=== PATIENT | male | born 1990 | race Caucasian/White ===

== ENCOUNTER 2020-07-29 10:06 | Emergency (ER) | payer MEDICAID ==
[~2020-07-29] VITALS: Ht 165.1 cm; Wt 63.5 kg
[2020-07-29 10:09] VITALS: BP_SYST 126
[2020-07-29] MEDS ORDERED: ALBU8.5H8 INH (10:14)
[2020-07-29 10:19] VITALS: BP_SYST 126
== END 2020-07-29 10:19 ==
LOC: SED 10:06
DX: Z02.89 Encounter for other administrative examinations (principal); J45.909 Unspecified asthma, uncomplicated; Z79.899 Other long term (current) drug therapy
CPT/HCPCS: 99283

== ENCOUNTER 2020-09-09 07:49 | Emergency (ER) | payer MEDICAID, SELFPAY ==
[~2020-09-09] VITALS: Ht 167.6 cm; Wt 63.5 kg
[~2020-09-09 07:49] MED LIST: ALBU8.5H8 INH
[2020-09-09 08:17] VITALS: BP_SYST 134
[2020-09-09] MEDS ORDERED: IBUPROFEN 800 MG TABLET PO ONE (09:00)
[2020-09-09 09:27] LABS: BASOPHILS % (AUTO) 0.1 % (0.0-2.0); HEMOGLOBIN 13.5 g/dL (14.0-18.0); LYMPHOCYTES # (AUTO) 2.6 K/uL (1.0-5.5); LYMPHOCYTES % (AUTO) 18.8 % (20.5-51.5); MEAN CORPUSCULAR HEMOGLOBIN 27 pg (27-31); MEAN CORPUSCULAR HGB CONC 34 % (32-36); MEAN CORPUSCULAR VOLUME 79 fL (79.0-98.0); MONOCYTES # (AUTO) 1.1 K/uL (0.0-1.0); MONOCYTES % (AUTO) 7.5 % (1.7-9.3); NEUTROPHILS # (AUTO) 10.3 K/uL (1.8-7.7); NEUTROPHILS % (AUTO) 73.6 % (40.0-70.0); PLATELET COUNT (AUTO) 244 K/uL (130-430); RED BLOOD CELL COUNT(AUTO) 5.06 MIL/uL (4.2-6.2); RED CELL DISTRIBUTION WIDTH 13.7 % (9.0-15.0)
[2020-09-09 09:43] LABS: CALCIUM 8.9 mg/dL (8.4-11.0); CREATININE 0.84 mg/dL (0.55-1.30); POTASSIUM 3.4 mmol/L (3.5-5.1)
[2020-09-09 09:46] LABS: PROTHROMBIN TIME 10.7 SECS (9.5-12.5)
[2020-09-09 09:49] LABS: ALBUMIN 3.3 g/dL (3.4-4.8)
[2020-09-09 10:12] LABS: ERYTHROCYTE SEDIMENTATION RATE 12 MM/HR (0-15)
[2020-09-09] MEDS ORDERED: MORPHINE 4 MG INJ. 4 MG/ML VIAL IVP ONE (10:45)
[2020-09-09] MEDS ORDERED: VANCOMYCIN HCL 1,000 MG in NS 250 ML IV ONE (10:45)
[2020-09-09] MEDS ORDERED: ACETAMINOPHEN 500 MG TABLET PO ONE (10:45)
[2020-09-09] MEDS ORDERED: VANCOMYCIN HCL 1000 MG/VIAL IV ONE (11:02)
[2020-09-09] MEDS ORDERED: SULF1TAB48 PO (11:36)
== END 2020-09-09 13:37 | disposition home or self-care (01) ==
LOC: SED 07:49
DX: L03.114 Cellulitis of left upper limb (principal); M79.18 Myalgia, other site; R50.9 Fever, unspecified; Z79.899 Other long term (current) drug therapy; Z20.822 Contact with and (suspected) exposure to COVID-19
CPT/HCPCS: 36415; 71045; 80053; 83605; 84484; 85025; 85610; 85651; 85730; 87040; 87426; 93005; 96365; 96366; 96375; 99285; J2270; J3370; 87186-TC

== ENCOUNTER 2020-09-10 13:26 | Inpatient (IN) | payer MEDICAID, SELFPAY ==
[~2020-09-10] VITALS: Ht 165.1 cm; Wt 63.5 kg
[~2020-09-10 13:26] MED LIST changes: +SULF1TAB48 PO
[2020-09-10] MEDS ORDERED: VANCOMYCIN HCL 1,000 MG in NS 250 ML IV ONE (13:30)
[2020-09-10] MEDS ORDERED: GENTAMICIN 100 mg/50 mL NS 50 ML IV ONE (13:30)
[2020-09-10] MEDS ORDERED: NACL 0.9% 1,000 ML IV ONE ×2 (13:30→14:00)
--- NOTE | 2020-09-10 13:30 | NUR ---
Placed in room 8 . Placed on quality assurance monitor, blood pressure machine and pulse oximeter. To gown for exam. Side rails up. Report given to BEATRICE Calabrese.
[2020-09-10 13:32] VITALS: BP_SYST 145
--- NOTE | 2020-09-10 13:32 | NUR ---
PT CAME TO ER AFTER BEING CALLED BY DR. OLSEN FOR INFECTION PRESENT IN THE BLOOD STREAM. PT HAS A HX OF IV DRUG USE, BILATERAL BICEPT SWELLING AND REDNESS, WARM TO TOUCH, TENDER AND PAINFUL. PT IS AMBULATORY, AAOX4, V/S STABLE UPON ARRIVAL Addendum: 09/10/20 at 1359 by [email or web address] PT CAME TO ER AFTER BEING CALLED BY DR. OLSEN FOR POSITIVE BLOOD CULTURES FROM PRESVIOUS VISIT ON 09/09/20. PT HAS A HX OF IV DRUG USE, BILATERAL BICEPT SWELLING AND REDNESS, WARM TO TOUCH, TENDER AND PAINFUL. PT IS AMBULATORY, AAOX4, V/S STABLE UPON ARRIVAL
--- NOTE | 2020-09-10 13:35 | NUR ---
ER DR. OLSEN AT THE BEDSIDE EXAMINING PT
--- NOTE | 2020-09-10 13:40 | NUR ---
PORTABLE X-RAY AT THE BEDSIDE
[2020-09-10] MEDS ORDERED: ACETAMINOPHEN 500 MG TABLET PO ONE (13:45)
--- NOTE | 2020-09-10 14:01 | NUR ---
Medication reconciliation completed with information provided by PT. Any prior medication reconciliation on file was reviewed and corrected.
[2020-09-10] MEDS ORDERED: VANCOMYCIN HCL 1000 MG/VIAL IV ONE (14:10)
--- NOTE | 2020-09-10 14:10 | NUR ---
ADMISSION ORDERS RECEIVED FROM DR. LAMBERT
[2020-09-10] MEDS ORDERED: LORazepam 2 MG/ML VIAL IVP ONE (14:15)
[2020-09-10] MEDS ORDERED: cloNIDine HCL 0.1 MG TABLET PO ONE (14:15)
--- NOTE | 2020-09-10 14:24 | NUR ---
LAB AT THE BEDSIDE FOR BLOOD DRAW
--- NOTE | 2020-09-10 14:40 | NUR ---
PT SLEEPING IN BED, NO DISTRESS NOTED, V/S STABLE
[2020-09-10] MEDS ORDERED: CIPROFLOXACIN LACT 400 MG/D5W 200 ML IV ONE (14:45)
[2020-09-10 14:56] LABS: BASOPHILS % (AUTO) 0.4 % (0.0-2.0); HEMATOCRIT 36.6 % (36-54); HEMOGLOBIN 12.3 g/dL (14.0-18.0); LYMPHOCYTES # (AUTO) 2.6 K/uL (1.0-5.5); LYMPHOCYTES % (AUTO) 21.2 % (20.5-51.5); MEAN CORPUSCULAR HEMOGLOBIN 27 pg (27-31); MEAN CORPUSCULAR HGB CONC 34 % (32-36); MEAN CORPUSCULAR VOLUME 80 fL (79.0-98.0); MONOCYTES # (AUTO) 1.2 K/uL (0.0-1.0); MONOCYTES % (AUTO) 9.8 % (1.7-9.3); NEUTROPHILS # (AUTO) 8.5 K/uL (1.8-7.7); NEUTROPHILS % (AUTO) 68.6 % (40.0-70.0); PLATELET COUNT (AUTO) 206 K/uL (130-430); RED BLOOD CELL COUNT(AUTO) 4.56 MIL/uL (4.2-6.2); RED CELL DISTRIBUTION WIDTH 14.1 % (9.0-15.0); WHITE BLOOD COUNT (AUTO) 12.4 K/uL (4.8-10.8)
[2020-09-10 15:02] LABS: CALCIUM 8.6 mg/dL (8.4-11.0); CREATININE 0.93 mg/dL (0.55-1.30)
[2020-09-10 15:08] LABS: TOTAL BILIRUBIN 0.2 mg/dL (0.0-1.0)
--- NOTE | 2020-09-10 15:18 | NUR ---
Patient will be admitted to care of DR. LAMBERT. Admitted to TELE unit. Will go to room 100B. Belongings list completed. Complete and up to date summary report printed. SBAR report to be given at bedside with opportunity for questions.
[2020-09-10 15:24] LABS: C-REACTIVE PROTEIN QUANT 12.5 mg/dL (0-0.5)
--- NOTE | 2020-09-10 15:36 | NUR ---
CONSULTATION PAGED REASON FOR CONSULTATION:SEPSIS WAS CONSULT CALLED?Y PERSON WHO WAS NOTIFIED:LIZA CONSULTING PHYSICIAN:LISBET LIN CELL PREPARER SPECIALTY:INFECTIOUS DISEASE CELL PREPARER PHONE NUMBER:[phone] REQUESTING PHYSICIAN: ROSS PATTERSON
--- NOTE | 2020-09-10 15:37 | NUR ---
ADMISSION NOTE Received patient from ER via gurney. Patient admitted with diagnosis of sepsis. Patient is awake, alert, oriented X . Patient oriented to hospital room, call light, toileting, pain management and safety-teach back done. Patient informed that Nancy and Uli will be his nurse and that their room number is 100B. Personal belongings checked and Belongings List documented. Call light within reach.
[2020-09-10] MEDS ORDERED: NALOXONE HCL 0.4 MG/ML AMP (NARCAN) IVP PRN ×2 (15:45)
[2020-09-10] MEDS ORDERED: ONDANSETRON HCL 4 MG/2 ML VIAL IVP PRN (15:45)
[2020-09-10] MEDS ORDERED: ACETAMINOPHEN 325 MG TABLET PO PRN (15:45)
--- NOTE | 2020-09-10 15:47 | NUR ---
CONSULTATION PAGED REASON FOR CONSULTATION:ENDOCARDITIS WAS CONSULT CALLED?Y PERSON WHO WAS NOTIFIED:ALFREDO CONSULTING PHYSICIAN:CALE SON WALLPAPERER SPECIALTY:CARDIO WALLPAPERER PHONE NUMBER:[phone] REQUESTING PHYSICIAN:ROSS PATTERSON
[2020-09-10 15:55] LABS: ERYTHROCYTE SEDIMENTATION RATE 20 MM/HR (0-15)
[2020-09-10 16:22] VITALS: BP_SYST 137
--- NOTE | 2020-09-10 16:49 | NUR ---
CONSULTATION PAGED REASON FOR CONSULTATION:IVDA WAS CONSULT CALLED?Y PERSON WHO WAS NOTIFIED:LIZA CONSULTING PHYSICIAN:CHANA XIAO ( PROTOHISTORIAN) REGISTERED NURSE NURSERY SPECIALTY:PSYCHE REGISTERED NURSE NURSERY PHONE NUMBER:[phone] REQUESTING PHYSICIAN: ROSS PATTERSON
[2020-09-10] MEDS: MORPHINE 4 MG INJ. 4 MG/ML VIAL IVP PRN ×2 (16:52→21:04)
[2020-09-10 17:17] VITALS: BP_SYST 135
[2020-09-10] MEDS: PIPERACILLIN/TAZO 3.375/DEX-IS 50 ML IV SCH (17:44)
[2020-09-10] MEDS: HYDROcodone/ACETAMIN 5-325 MG TAB (NORCO/ VICODIN) PO PRN (18:41)
--- NOTE | 2020-09-10 18:53 | NUR ---
Closing Note Patient lying down in bed with girlfriend, reports moderate pain, pain medication given. IV 20 G in right upper arm patent and infusing NS. Bed in lowest position, bed alarm on, and call light with reach. Used urinal at bedside, dark yellow urine noted. Vitals are stable and no acute respiratory distress noted.
--- NOTE | 2020-09-10 19:15 | NUR ---
OPENING NOTES: Received patient report from morning shift RN. Patient on bed, AAOx4, breathing evenly and nonlabored on room air, no s/s of distress, HOB elevated. Patient has an IV on the DIXIE 20G, patent, benign, and flushing. No s/s of infection or infiltration. Educated patient on plan of care, fall/safety precaution, call light system. Patient verbalized understanding with returned demonstration. Will continue to monitor.
[2020-09-10 20:00] VITALS: BP_SYST 118
[2020-09-10] MEDS ORDERED: CIPROFLOXACIN LACT 400 MG/D5W 200 ML IV SCH (21:00)
[2020-09-10] MEDS: VANCOMYCIN HCL 750 MG in NS 250 ML IV SCH (22:27)
[2020-09-11] VITALS: BP_SYST 127
[2020-09-11] MEDS: PIPERACILLIN/TAZO 3.375/DEX-IS 50 ML IV SCH ×2 (00:09→05:17)
[2020-09-11] MEDS: MORPHINE 4 MG INJ. 4 MG/ML VIAL IVP PRN ×4 (05:17→20:49)
[2020-09-11] MEDS: VANCOMYCIN HCL 750 MG in NS 250 ML IV SCH ×3 (06:03→22:09)
--- NOTE | 2020-09-11 06:25 | NUR ---
CLOSING NOTES: Patient in bed, eyes closed, breathing evenly and nonlabored on room air, no s/s of distress, HOB elevated. Patient has an IV on the DIXIE 20G, patent, benign, and flushing. Call light within reach. Fall/safety precautions. Will continue to monitor and endorse care to morning shift rn.
--- NOTE | 2020-09-11 06:53 | NUR ---
Nutrition Update Nile Scale 18 noted. Pt admitted for Sepsis Diet: Regular BMI: 23.3 kg/m2 RD to follow per nutrition care standards.
[2020-09-11 08:08] VITALS: BP_SYST 127
--- NOTE | 2020-09-11 08:10 | NUR ---
OPENING NOTES: RECEIVED FROM ENAMEL SPRAYER RN. PATIENT EATING BREAKFAST. ALERT,A AWAKE AND ORIENTED X 4. NO SIGNS OF ACUTE DISTRESS NOTED. IV PATENT AND INFUSING WELL. FALL AND SAFETY PRECAUTION REINFORCED. CALL LIGHT WITHIN REACH.
[2020-09-11 11:00] LABS: BARBITURATE, URINE NEGATIVE (NEG <=200); BENZODIAZEPINE, URINE NEGATIVE (NEG <=150); CANNABINOID, URINE NEGATIVE (NEG <=50); COCAINE, URINE NEGATIVE (NEG <=150); METHAMPHETAMINES SCREEN,URINE POSITIVE (NEG <=500); OPIATE, URINE POSITIVE (NEG <=100); PHENCYCLIDINE SCREEN,URINE NEGATIVE (NEG <=25); UR TRICYCLIC ANTIDEPRESSANTS NEGATIVE (NEG <=300); URINE AMPHETAMINE POSITIVE (NEG <=500); URINE METHADONE NEGATIVE (NEG <=200); URINE OXYCODONE SCREEN NEGATIVE (NEG <=100); URINE PROPOXYPHENE SCREEN NEGATIVE (NEG <=300)
[2020-09-11 11:28] VITALS: BP_SYST 128
[2020-09-11] MEDS: AMPICILLIN SODIUM/SULBACTAM NA 3 GM in NS 100 ML IV SCH ×2 (11:56→17:24)
[2020-09-11] MEDS: HYDROcodone/ACETAMIN 5-325 MG TAB (NORCO/ VICODIN) PO PRN (15:00)
[2020-09-11 15:25] VITALS: BP_SYST 119
[2020-09-11 16:10] LABS: BASOPHILS % (AUTO) 0.1 % (0.0-2.0); EOSINOPHILS # (AUTO) 0.1 K/uL (0.0-0.4); EOSINOPHILS % (AUTO) 0.6 % (0.0-4.0); HEMATOCRIT 36.8 % (36-54); HEMOGLOBIN 12.3 g/dL (14.0-18.0); LYMPHOCYTES # (AUTO) 3.3 K/uL (1.0-5.5); MEAN CORPUSCULAR HEMOGLOBIN 27 pg (27-31); MEAN CORPUSCULAR HGB CONC 33 % (32-36); MEAN CORPUSCULAR VOLUME 80 fL (79.0-98.0); MONOCYTES # (AUTO) 1.3 K/uL (0.0-1.0); MONOCYTES % (AUTO) 10.1 % (1.7-9.3); NEUTROPHILS # (AUTO) 8.1 K/uL (1.8-7.7); NEUTROPHILS % (AUTO) 63.2 % (40.0-70.0); PLATELET COUNT (AUTO) 229 K/uL (130-430); RED BLOOD CELL COUNT(AUTO) 4.58 MIL/uL (4.2-6.2); RED CELL DISTRIBUTION WIDTH 13.8 % (9.0-15.0); WHITE BLOOD COUNT (AUTO) 12.7 K/uL (4.8-10.8)
--- NOTE | 2020-09-11 16:30 | NUR ---
RN NOTES: PATIENT C/O PAIN RATED 9/10 GENERALIZED. NO SIGNS OF RESPIRATORY DISTRESS NOTED. MORPHINE GIVEN ORDERED.
[2020-09-11 16:47] LABS: ALBUMIN 2.7 g/dL (3.4-4.8); CALCIUM 8.8 mg/dL (8.4-11.0); CREATININE 0.76 mg/dL (0.55-1.30); POTASSIUM 3.7 mmol/L (3.5-5.1); TOTAL BILIRUBIN 0.3 mg/dL (0.0-1.0)
--- NOTE | 2020-09-11 19:00 | NUR ---
CLOSING NOTES: PATIENT EATING DINNER. NO SIGNS OF ACUTE DISTRESS NOTED. IV INFUSING WELL. CALL LIGHT WITHIN REACH. FALL AND SAFETY PRECAUTION RENDERED.
--- NOTE | 2020-09-11 19:15 | NUR ---
OPENING NOTES: Received patient report from am nurse. Patient in bed, AAOx4, breathing evenly and nonlabored on room air, HOB elevated, no s/s of distress. Patient has an IV on the DIXIE, patent, benign, and flushing. No s/s of infection or infiltration. Fall/safety precaution. Call light within reach. Will continue to monitor.
[2020-09-11 20:00] VITALS: BP_SYST 129
[2020-09-11] MEDS: HYDROcodone/ACETAMIN 10-325 MG TAB PO PRN (22:09)
[2020-09-12] VITALS: BP_SYST 114
[2020-09-12] MEDS: AMPICILLIN SODIUM/SULBACTAM NA 3 GM in NS 100 ML IV SCH ×5 (00:47→23:19)
[2020-09-12] MEDS: MORPHINE 4 MG INJ. 4 MG/ML VIAL IVP PRN ×4 (00:47→18:04)
--- NOTE | 2020-09-12 00:47 | NUR ---
ROUNDS/PAIN: Administered pain medication. Will reassess and monitor patient.
--- NOTE | 2020-09-12 04:58 | NUR ---
ROUNDS/PAIN: Administered pain medications, will reassess and monitor.
[2020-09-12] MEDS: VANCOMYCIN HCL 750 MG in NS 250 ML IV SCH (06:01)
[2020-09-12] MEDS: HYDROcodone/ACETAMIN 5-325 MG TAB (NORCO/ VICODIN) PO PRN ×2 (06:37→14:43)
--- NOTE | 2020-09-12 06:51 | NUR ---
CLOSING NOTES: Patient in bed, AAOx4, breathing evenly and nonlabored on room air, HOB elevated, no s/s of distress. Patient has an IV on the DIXIE, patent, benign, and flushing. No s/s of infection or infiltration. Fall/safety precaution. Call light within reach. Will continue to monitor and endorse care to morning shift rn.
[2020-09-12 06:55] LABS: BASOPHILS % (AUTO) 0.3 % (0.0-2.0); EOSINOPHILS # (AUTO) 0.1 K/uL (0.0-0.4); EOSINOPHILS % (AUTO) 1.1 % (0.0-4.0); HEMATOCRIT 37.4 % (36-54); HEMOGLOBIN 12.7 g/dL (14.0-18.0); LYMPHOCYTES # (AUTO) 3.1 K/uL (1.0-5.5); LYMPHOCYTES % (AUTO) 30.7 % (20.5-51.5); MEAN CORPUSCULAR HEMOGLOBIN 27 pg (27-31); MEAN CORPUSCULAR HGB CONC 34 % (32-36); MEAN CORPUSCULAR VOLUME 81 fL (79.0-98.0); MONOCYTES # (AUTO) 1.2 K/uL (0.0-1.0); MONOCYTES % (AUTO) 12.1 % (1.7-9.3); NEUTROPHILS # (AUTO) 5.7 K/uL (1.8-7.7); NEUTROPHILS % (AUTO) 55.8 % (40.0-70.0); PLATELET COUNT (AUTO) 239 K/uL (130-430); RED BLOOD CELL COUNT(AUTO) 4.65 MIL/uL (4.2-6.2); RED CELL DISTRIBUTION WIDTH 14.5 % (9.0-15.0); WHITE BLOOD COUNT (AUTO) 10.1 K/uL (4.8-10.8)
[2020-09-12 07:13] LABS: ALBUMIN 2.5 g/dL (3.4-4.8); CALCIUM 8.7 mg/dL (8.4-11.0); CREATININE 0.72 mg/dL (0.55-1.30); POTASSIUM 3.8 mmol/L (3.5-5.1); TOTAL BILIRUBIN 0.4 mg/dL (0.0-1.0)
--- NOTE | 2020-09-12 08:00 | NUR ---
Opening Note Patient resting with girlfriend at bedside, reported pain, pain medication given per MD orders. Bed in lowest position, and call light within reach. Educated on side effects of pain medication and to call if he needs assistance.
[2020-09-12 11:23] VITALS: BP_SYST 130
--- NOTE | 2020-09-12 14:09 | NUR ---
Dietitian Recommendations * Recommend: continue regular diet, add double portions of proteins and vegetables. * Consider: Ensure Enlive BID if poor PO intake persists. (ONS provides 700 kcals and 40g protein daily) Please see Nutritional Assessment for details.
[2020-09-12] MEDS: VANCOMYCIN HCL 1,000 MG in NS 250 ML IV SCH ×2 (14:43→23:00)
--- NOTE | 2020-09-12 15:34 | NUR ---
Jayne Bowers patient has positive blood cultures, MRSA in blood culture. Addendum: 09/12/20 at 1617 by Uli Patel RN Third page for Dr. Bowers
[2020-09-12 15:35] VITALS: BP_SYST 135
--- NOTE | 2020-09-12 15:41 | NUR ---
Paged Dr. Bowers with lab results. Positive blood culture for MRSA. Will call back in 15 minutes
[2020-09-12] MEDS: HYDROcodone/ACETAMIN 10-325 MG TAB PO PRN (18:52)
--- NOTE | 2020-09-12 19:00 | NUR ---
Patient in bed with girlfriend, AAOx4, breathing evenly and nonlabored on room air, HOB elevated, no s/s of distress. Patient has an IV on the DIXIE, disconnected from antibiotics, will endorse to start a new antibiotics as it is leaking. No s/s of infection or infiltration. Fall/safety precaution. Call light within reach. Will continue to monitor and endorse care to morning shift rn.
--- NOTE | 2020-09-12 19:50 | NUR ---
Opening notes Pt AAOx4, VSS, afebrile. No s/s distress noted. IV DIXIE not patent. Call light within reach. Pt's girlfriend at bedside. Bed low, locked, siderails up x2. To monitor.
[2020-09-12 20:00] VITALS: BP_SYST 128
--- NOTE | 2020-09-12 22:00 | NUR ---
IV restart attempted IV restart attempted multiple times but unsuccessful (blows/multiple tattoos). Garcia merlos MD.
--- NOTE | 2020-09-12 22:32 | NUR ---
Jayne Machado for midline/PICC line order. Awaiting callback.
--- NOTE | 2020-09-12 22:33 | NUR ---
Paged Dr. Machado s/w Vianey
--- NOTE | 2020-09-13 00:04 | NUR ---
Received MD callback Received order for PICC line insertion per Dr. Machado.
[2020-09-13 00:18] VITALS: BP_SYST 111
[2020-09-13] MEDS: HYDROcodone/ACETAMIN 10-325 MG TAB PO PRN ×2 (00:26→06:47)
[2020-09-13] MEDS: AMPICILLIN SODIUM/SULBACTAM NA 3 GM in NS 100 ML IV SCH ×4 (05:36→23:48)
[2020-09-13] MEDS: VANCOMYCIN HCL 1,000 MG in NS 250 ML IV SCH ×3 (05:36→22:18)
--- NOTE | 2020-09-13 06:42 | NUR ---
Closing notes/Pain Pt alert, awake, no s/s distress noted, c/o 9/10 generalized pain. Medicated w/ [place] 10 1tab PO as needed. Pt awaiting PICC line placement, consent in the chart. Call light within reach. Bed low, locked, siderails up x2. To endorse to AM nurse.
[2020-09-13 07:23] LABS: INR 0.9 (0.80-1.20); PROTHROMBIN TIME 9.5 SECS (9.5-12.5)
--- NOTE | 2020-09-13 08:00 | NUR ---
Opening Note Pt AAOx4, VSS, afebrile. No s/s distress noted. IV DIXIE not patent. Call light within reach. Pt's girlfriend at bedside. Bed low, locked, siderails up x2. Will continue to monitor.
[2020-09-13] MEDS: MORPHINE 4 MG INJ. 4 MG/ML VIAL IVP PRN ×4 (09:34→22:20)
[2020-09-13 09:39] VITALS: BP_SYST 127
--- NOTE | 2020-09-13 09:45 | NUR ---
D/C Pt taken off Tele monitor Addendum: 09/13/20 at 1025 by Nancy Gurrola RN D/C off monitor
--- NOTE | 2020-09-13 12:03 | NUR ---
PICC line placement PICC line nurse at bedside (Bill) at bedside doing PICC line placement.
[2020-09-13 12:06] VITALS: BP_SYST 119
[2020-09-13] MEDS: HYDROcodone/ACETAMIN 5-325 MG TAB (NORCO/ VICODIN) PO PRN (12:51)
--- NOTE | 2020-09-13 15:02 | NUR ---
SS notes BRAND DEVELOPMENT MANAGER wanted to share some drug rehab and mental health resources with pt. BRAND DEVELOPMENT MANAGER saw a notification on pts. door to put PPE on. BRAND DEVELOPMENT MANAGER met with Carlin Camarena and Carlin Cruz to share the resources with pt. the next time they check on pt. Both Rn's stated they will be sensitive to pts. visitors as he has had both his mom and his girlfriend visiting and they do not know about is drug usage. BRAND DEVELOPMENT MANAGER thanked Carlin Camarena, gave her the resources and a business card. BRAND DEVELOPMENT MANAGER will remain available as needed.
--- NOTE | 2020-09-13 16:00 | NUR ---
Rounding Note Paged Dr. Bowers about patient reporting rash on patients right thigh and itching.
[2020-09-13 16:04] VITALS: BP_SYST 129
[2020-09-13] MEDS ORDERED: DIPHENHYDRAMINE INJ 50 MG/ML VIAL IVP PRN (17:30)
--- NOTE | 2020-09-13 18:10 | NUR ---
Dr Bowers Rounding Note Dr. Bowers at bedside, discussed plan of care with patient. Rash that pt reported is no longer bothering him. New orders received. Continued antibiotics.
--- NOTE | 2020-09-13 18:27 | NUR ---
Closing Note Patient in bed, AAOx4, breathing evenly and nonlabored on room air, HOB elevated, no s/s of distress. Patient PICC line flushed and slow blood return attained, patent, benign, and flushing. No s/s of infection or infiltration. Fall/safety precaution. Call light within reach. Will continue to monitor and endorse care to slot shift manager rn.
[2020-09-13 20:00] VITALS: BP_SYST 124
--- NOTE | 2020-09-13 20:15 | NUR ---
OPENING NOTE PT LAYING IN BED WITH GIRLFRIEND/ AT BEDSIDE. DIXIE PICC CLEAN DRY AND INTACT. SAFETY PRECAUTIONS IN PLACE. WILL CONTINUE TO MONITOR,.
--- NOTE | 2020-09-13 21:00 | NUR ---
EDUCATED PT ON VISITOR POLICY EXPLAINED THAT SIGNIFICANT OTHER CANNOT STAY AT BEDSIDE WITH PT PAST 2100. PT STATES HE HAD AN AGREEMENT WITH PREVIOUS SUPERVISORS TO ALLOW HIS GF/ TO STAY OVERNIGHT WHILE PT HOSPITALIZED. SECURITY ASSISTED WITH EDUCATION ON VISITOR POLICY. AFTER PT SPOKE WITH DRUM DRIER OPERATOR, AGREEMENT WAS MADE. PT GF/ WILL STAY OVERNIGHT BUT LEAVE AT 0600. AND WILL NOT BE ABLE TO STAY OVERNIGHT AGAIN. PT VERBALIZED UNDERSTANDING. SECURITY PRESENT.
[2020-09-14 02:05] VITALS: BP_SYST 113
[2020-09-14] MEDS: MORPHINE 4 MG INJ. 4 MG/ML VIAL IVP PRN ×3 (02:45→11:47)
[2020-09-14] MEDS: AMPICILLIN SODIUM/SULBACTAM NA 3 GM in NS 100 ML IV SCH ×2 (05:59→11:47)
[2020-09-14] MEDS: VANCOMYCIN HCL 1,000 MG in NS 250 ML IV SCH (06:52)
--- NOTE | 2020-09-14 07:25 | NUR ---
OPENING NOTE Patient resting in the bed. No acute distress. Skin warm and dry to touch. PICC line intact to DIXIE, no redness, no swelling, no drainage. Covered with clean and dry transparent dressing. On contact isolation. Safety measure maintained. Call light within reached. Bed locked in low position, side rails up. Refused bed alarm, risk and benefit explained, verbally understanding. Will continue to monitor.
--- NOTE | 2020-09-14 07:27 | NUR ---
CLOSING NOTE PATIENT SLEEPING IN BED. NO SIGNS OF DISTRESS NOTED. DIXIE PICC CLEAN DRY AND INTACT. ALL NEEDS MET THROUGHOUT THE NIGHT. SAFETY PRECAUTIONS IN PLACE. WILL ENDORSE TO DAY RN.
[2020-09-14 07:50] VITALS: BP_SYST 118
--- NOTE | 2020-09-14 11:48 | NUR ---
MORPHINE GIVEN Patient c/o left arm pain 10/10. Morphine 4mg IVP given as ordered. No acute distress. Isolation maintained. Call light within reached. Continue to monitor.
--- NOTE | 2020-09-14 12:01 | NUR ---
SEEN AND EXAMINED BY DR. LAMBERT [facility]. PER DR. LAMBERT WILL CALL DR. EMMANUEL FOR DISCHARGE ANTIBIOTIC.
--- NOTE | 2020-09-14 12:45 | NUR ---
DR. LAMBERT BACK TO UNIT AND GAVE WRITTEN PRESCRIPTION TO PATIENT FOR DISCHARGE AND D/C PICC LINE PRIOR DISCHARGE.
[2020-09-14] MEDS ORDERED: CLINDAMYCIN HCL 150 MG CAPSULE PO ONE (13:00)
[2020-09-14 15:00] VITALS: BP_SYST 116
--- NOTE | 2020-09-14 15:02 | NUR ---
CM note: dc to home with prescriptions, dispo code 01.
[2020-09-14] MEDS ORDERED: HYDR-3927 PO (15:10)
[2020-09-14] MEDS ORDERED: CLE150 PO (15:13)
[2020-09-14] MEDS ORDERED: L.RH1CAP PO (15:13)
--- NOTE | 2020-09-14 15:45 | NUR ---
D/C Patient Patient given medication reconciliation form and D/C instructions. Exit Care provided. Patient verbalized understanding. MD discussed with patient the results and treatment provided. Ambulatory with steady gait for discharge to home. Patient in stable condition, ID band removed. PICC line removed, intact and pressure dressing applied, no active bleeding. Rx of [place], Clindamycin, and Probiotic given. Patient educated on pain management and follow up appointment with PCP and ID, verbally understanding. All belongings sent with patient.
[2020-09-14] MEDS ORDERED: CLINDAMYCIN HCL 150 MG CAPSULE PO SCH (18:00)
== END 2020-09-14 15:45 | disposition home or self-care (01) | DRG 720 ==
LOC: SED 13:26 → STU 14:22 → SMU 09-13 10:23
PROVIDERS: ADMIT Internal Medicine; ATTEND Internal Medicine
DX: A41.9 Sepsis, unspecified organism (principal); E44.0 Moderate protein-calorie malnutrition; I38 Endocarditis, valve unspecified; F11.10 Opioid abuse, uncomplicated; L03.114 Cellulitis of left upper limb; B95.8 Unspecified staphylococcus as the cause of diseases classified elsewhere; D64.9 Anemia, unspecified; Z20.822 Contact with and (suspected) exposure to COVID-19; Z87.891 Personal history of nicotine dependence; Z71.51 Drug abuse counseling and surveillance of drug abuser; Z79.899 Other long term (current) drug therapy; Z68.23 Body mass index [BMI] 23.0-23.9, adult
CPT/HCPCS: 36415; 71045; 73090; 80053; 80202; 80307; 83605; 83880; 84146; 84484; 85025; 85610-TC; 85651-TC; 85730-TC; 86140; 86710; 87040-TC; 87081; 93005; 93306; 96365; 96368; 99291; G0378; J0295; J0744; J1200; J1580; J2270; J2405; J2543; J3370; J7050

== ENCOUNTER 2021-03-24 14:54 | Emergency (ER) | payer MEDICAID, SELFPAY ==
[~2021-03-24] VITALS: Ht 165.1 cm; Wt 68.0 kg
[~2021-03-24 14:54] MED LIST changes: +CLE150 PO; +HYDR-3927 PO; +L.RH1CAP PO; -SULF1TAB48 PO
[2021-03-24 15:14] VITALS: BP_SYST 164
[2021-03-24] MEDS ORDERED: KETOROLAC TROMETHAMINE 30 MG VIAL IVP ONE (15:45)
[2021-03-24] MEDS ORDERED: NACL 0.9% 1,000 ML IV ONE (15:45)
[2021-03-24 16:31] LABS: BASOPHILS % (AUTO) 0.2 % (0.0-2.0); EOSINOPHILS # (AUTO) 0.1 K/uL (0.0-0.4); EOSINOPHILS % (AUTO) 1.4 % (0.0-4.0); HEMATOCRIT 43.5 % (36-54); HEMOGLOBIN 14.7 g/dL (14.0-18.0); LYMPHOCYTES # (AUTO) 3.4 K/uL (1.0-5.5); LYMPHOCYTES % (AUTO) 41.3 % (20.5-51.5); MEAN CORPUSCULAR HEMOGLOBIN 28 pg (27-31); MEAN CORPUSCULAR HGB CONC 34 % (32-36); MEAN CORPUSCULAR VOLUME 83 fL (79.0-98.0); MONOCYTES # (AUTO) 0.9 K/uL (0.0-1.0); MONOCYTES % (AUTO) 10.9 % (1.7-9.3); NEUTROPHILS # (AUTO) 3.7 K/uL (1.8-7.7); NEUTROPHILS % (AUTO) 46.2 % (40.0-70.0); PLATELET COUNT (AUTO) 222 K/uL (130-430); RED BLOOD CELL COUNT(AUTO) 5.25 MIL/uL (4.2-6.2); RED CELL DISTRIBUTION WIDTH 13.1 % (9.0-15.0); WHITE BLOOD COUNT (AUTO) 8.1 K/uL (4.8-10.8)
[2021-03-24 16:39] LABS: CALCIUM 9.2 mg/dL (8.4-11.0); CREATININE 0.84 mg/dL (0.55-1.30); POTASSIUM 3.7 mmol/L (3.5-5.1)
[2021-03-24 16:45] LABS: ALBUMIN 4.1 g/dL (3.4-4.8); TOTAL BILIRUBIN 1.4 mg/dL (0.0-1.0)
[2021-03-24] MEDS ORDERED: IBUP-1969 PO (17:19)
[2021-03-24] MEDS ORDERED: HYDR-3917 PO (17:19)
[2021-03-24 17:29] VITALS: BP_SYST 164
== END 2021-03-24 17:29 | disposition home or self-care (01) ==
LOC: SED 14:54
DX: R10.11 Right upper quadrant pain (principal)
CPT/HCPCS: 36415; 74176; 76376; 80053; 83690; 85025; 96361; 96374; 99284; J1885; J7030

== ENCOUNTER 2022-09-18 18:55 | Emergency (ER) | payer MEDICAID ==
[~2022-09-18] VITALS: Ht 165.1 cm; Wt 70.3 kg
[~2022-09-18 18:55] MED LIST changes: +HYDR-3917 PO; +IBUP-1969 PO
[2022-09-18 19:12] VITALS: BP_SYST 162; PULSE 133; RESP 20; TEMP 97.6; O2SAT 100
[2022-09-18 20:07] LABS: HEMATOCRIT 44.8 % (36-54); HEMOGLOBIN 14.7 g/dL (14.0-18.0); MEAN CORPUSCULAR HEMOGLOBIN 27 pg (27-31); MEAN CORPUSCULAR HGB CONC 33 % (32-36); MEAN CORPUSCULAR VOLUME 81 fL (79.0-98.0); PLATELET COUNT (AUTO) 270 K/uL (130-430); RED BLOOD CELL COUNT(AUTO) 5.51 MIL/uL (4.2-6.2); RED CELL DISTRIBUTION WIDTH 14.1 % (9.0-15.0); WHITE BLOOD COUNT (AUTO) 12.4 K/uL (4.8-10.8)
[2022-09-18 20:29] LABS: ALBUMIN 4.5 g/dL (3.4-4.8); CALCIUM 9.6 mg/dL (8.4-11.0); CREATININE 1.27 mg/dL (0.55-1.30); POTASSIUM 3.8 mmol/L (3.5-5.1); TOTAL BILIRUBIN 0.9 mg/dL (0.0-1.0); TOTAL PROTEIN, SERUM 9.3 g/dL (6.4-8.3)
[2022-09-18 20:32] LABS: BILIRUBIN,URINE NEGATIVE (NEGATIVE); BLOOD, URINE 1+ (NEGATIVE); CLARITY/URINE CLEAR (CLEAR); COLOR,URINE YELLOW (YELLOW); GLUCOSE,URINE NEGATIVE (NEGATIVE); KETONES,URINE TRACE (NEGATIVE); LEUKOCYTE ESTERASE ,URINE NEGATIVE (NEGATIVE); NITRITE, URINE NEGATIVE (NEGATIVE); PROTEIN URINE 2+ (NEGATIVE); UROBILINOGEN,URINE 0.2 (0.2-1.0)
[2022-09-18 20:45] LABS: BAND % (MANUAL) 1 % (0-6)
[2022-09-18 20:46] LABS: BASOPHILS % (MANUAL) 0 % (0-2); EOSINOPHILS % (MANUAL) 1 % (0-7); MONOCYTES % (MANUAL) 7 % (0-11); STOMATOCYTES FEW
[2022-09-18 20:47] LABS: LYMPHOCYTES % (MANUAL) 44 % (20-46)
[2022-09-18 20:55] LABS: BARBITURATE, URINE NEGATIVE (NEG <=200); BENZODIAZEPINE, URINE NEGATIVE (NEG <=150); CANNABINOID, URINE NEGATIVE (NEG <=50); COCAINE, URINE NEGATIVE (NEG <=150); OPIATE, URINE POSITIVE (NEG <=100); PHENCYCLIDINE SCREEN,URINE NEGATIVE (NEG <=25); UR TRICYCLIC ANTIDEPRESSANTS NEGATIVE (NEG <=300); URINE AMPHETAMINE POSITIVE (NEG <=500); URINE METHADONE NEGATIVE (NEG <=200); URINE OXYCODONE SCREEN NEGATIVE (NEG <=100); URINE PROPOXYPHENE SCREEN NEGATIVE (NEG <=300)
[2022-09-18 20:56] LABS: METHAMPHETAMINES SCREEN,URINE POSITIVE (NEG <=500)
[2022-09-18 21:03] LABS: BACTERIA,URINE None Seen /HPF (None Seen); HYALINE CASTS, URINE 0-10 /LPF (None Seen); MUCUS,URINE 2+ /LPF (None Seen); WBC,URINE 0-3 /HPF (0-3)
[2022-09-18] MEDS ORDERED: AMOX-423 PO (21:38)
[2022-09-18] MEDS ORDERED: LORazepam 1 MG TABLET PO ONE (21:45)
[2022-09-18 21:55] VITALS: BP_SYST 121; PULSE 105; RESP 18; TEMP 97.6; O2SAT 99
[2022-09-19] MEDS ORDERED: IBUP-1969 PO (21:05)
[2022-09-19] MEDS ORDERED: POLY119P2 PO (21:05)
[2022-09-19] MEDS ORDERED: PHEN1SUP42 RC (21:05)
== END 2022-09-18 23:38 | disposition home or self-care (01) ==
LOC: SED 18:55
DX: R00.0 Tachycardia, unspecified (principal); R07.9 Chest pain, unspecified; F15.90 Other stimulant use, unspecified, uncomplicated; Z79.899 Other long term (current) drug therapy
CPT/HCPCS: 36415; 80053; 80307; 81000; 83690; 85007; 85027; 93005; 99284

== ENCOUNTER 2022-09-19 18:44 | Emergency (ER) | payer MEDICAID ==
[~2022-09-19 18:44] MED LIST changes: +AMOX-423 PO
[2022-09-19 19:22] VITALS: BP_SYST 135; PULSE 108; RESP 18; TEMP 98.4; O2SAT 99
--- NOTE | 2022-09-19 19:59 | NUR ---
Patient to ER bed 2 to gown for evaluation. Side rails up. Report given to Miryam BARRON by Lalo BARRON.
--- NOTE | 2022-09-19 20:40 | NUR ---
PT C/O OF BLOOD IN STOOL X 2 DAYS. PT STATED HE PUT A FOREIGN OBJECT IN HIS ANUS YESTERDAY. ALSO C/O OF A PAINFUL PIMPLE ON LEFT JAW THAT HE POPPED YESTERDAY. AREA IS SCABBED OVER WITH SCANT CLEAR DRAINAGE. DENIES, N/V/D, CHEST PAIN AND SOB. A/O X3, AMBULATORY.
--- NOTE | 2022-09-19 20:46 | NUR ---
ER at bedside examining patient.
[2022-09-19] MEDS ORDERED: IBUP-1969 PO (21:05)
[2022-09-19] MEDS ORDERED: PHEN1SUP42 RC (21:05)
[2022-09-19] MEDS ORDERED: POLY119P2 PO (21:05)
[2022-09-19 21:12] VITALS: BP_SYST 152; PULSE 99; RESP 19; TEMP 98; O2SAT 95
--- NOTE | 2022-09-19 21:19 | NUR ---
Patient given written and verbal discharge instructions and verbalizes understanding. ER MD discussed with patient the results and treatment provided. Patient in stable condition. ID arm band removed. Rx of IBUPROFEN, PREPERATION H, MIRALAX given. Patient educated on pain management and to follow up with PMD. Pain Scale 2/10. Opportunity for questions provided and answered. Medication side effect fact sheet provided.
== END 2022-09-19 21:14 | disposition home or self-care (01) ==
LOC: SED 18:44
DX: K60.2 Anal fissure, unspecified (principal); K59.00 Constipation, unspecified; K92.1 Melena; Z79.899 Other long term (current) drug therapy
CPT/HCPCS: 99282

== ENCOUNTER 2022-12-03 14:51 | Emergency (ER) | payer SELFPAY ==
[~2022-12-03] VITALS: Ht 165.1 cm; Wt 65.8 kg
[~2022-12-03 14:51] MED LIST changes: +PHEN1SUP42 RC; +POLY119P2 PO
[2022-12-03 15:07] VITALS: BP_SYST 132; PULSE 100; RESP 16; TEMP 97.7; O2SAT 100
[2022-12-03] MEDS ORDERED: BUPRENORPHINE HCL/NALOXONE HCL 2-0.5 MG 1 EACH TAB.SUBL SL ONE ×2 (16:15)
[2022-12-03] MEDS ORDERED: BUPR1FIL7 SL (16:28)
[2022-12-03 17:08] VITALS: BP_SYST 132; PULSE 100; RESP 16; TEMP 97.7; O2SAT 100
== END 2022-12-03 17:09 | disposition home or self-care (01) ==
LOC: SED 14:51
DX: F11.23 Opioid dependence with withdrawal (principal); F11.20 Opioid dependence, uncomplicated; R19.7 Diarrhea, unspecified; R68.83 Chills (without fever); R11.0 Nausea; Z79.899 Other long term (current) drug therapy
CPT/HCPCS: 99283

== ENCOUNTER 2023-09-02 14:24 | Emergency (ER) | payer MEDICAID ==
[~2023-09-02] VITALS: Ht 165.1 cm; Wt 71.2 kg
[~2023-09-02 14:24] MED LIST changes: +BUPR1FIL7 SL
[2023-09-02 14:29] VITALS: BP_SYST 157; PULSE 105; RESP 20; TEMP 98.6; O2SAT 98
[2023-09-02] MEDS: ALPRAZolam 0.25 MG TABLET PO ONE (15:19)
[2023-09-02 15:23] LABS: BASOPHILS % (AUTO) 0.2 % (0.0-2.0); EOSINOPHILS # (AUTO) 0.1 K/uL (0.0-0.4); EOSINOPHILS % (AUTO) 1.1 % (0.0-4.0); HEMATOCRIT 37.6 % (36-54); HEMOGLOBIN 12.8 g/dL (14.0-18.0); LYMPHOCYTES # (AUTO) 3.6 K/uL (1.0-5.5); LYMPHOCYTES % (AUTO) 40.4 % (20.5-51.5); MEAN CORPUSCULAR HEMOGLOBIN 28 pg (27-31); MEAN CORPUSCULAR HGB CONC 34 % (32-36); MEAN CORPUSCULAR VOLUME 81 fL (79.0-98.0); MONOCYTES # (AUTO) 0.8 K/uL (0.0-1.0); MONOCYTES % (AUTO) 8.4 % (1.7-9.3); NEUTROPHILS # (AUTO) 4.5 K/uL (1.8-7.7); NEUTROPHILS % (AUTO) 49.9 % (40.0-70.0); PLATELET COUNT (AUTO) 266 K/uL (130-430); RED BLOOD CELL COUNT(AUTO) 4.63 MIL/uL (4.2-6.2); RED CELL DISTRIBUTION WIDTH 13.3 % (9.0-15.0)
[2023-09-02 15:53] LABS: ANION GAP 9 (5-15); CALCIUM 9.3 mg/dL (8.4-11.0); CARBON DIOXIDE 24 mmol/L (23-29); CHLORIDE 105 mmol/L (98-107); CREATININE 0.74 mg/dL (0.55-1.30); GFR AFRICAN AMERICAN 155 mL/min (>90); GFR NON AFRICAN-AMERICAN 128 mL/min (>90); GLUCOSE 115 mg/dL (74-106); POTASSIUM 4.2 mmol/L (3.5-5.1); SODIUM SERUM 138 mmol/L (136-145); UREA NITROGEN, BLOOD 15 mg/dL (8-21)
[2023-09-02] MEDS ORDERED: LORA-259 PO (16:28)
[2023-09-02 16:40] VITALS: BP_SYST 125; PULSE 81; RESP 16; O2SAT 98
== END 2023-09-02 16:40 | disposition home or self-care (01) ==
LOC: SED 14:24
DX: R06.02 Shortness of breath (principal); F41.9 Anxiety disorder, unspecified; R07.89 Other chest pain; R00.0 Tachycardia, unspecified; F15.90 Other stimulant use, unspecified, uncomplicated; F11.90 Opioid use, unspecified, uncomplicated; Z98.890 Other specified postprocedural states; Z79.899 Other long term (current) drug therapy; Z79.2 Long term (current) use of antibiotics
CPT/HCPCS: 36415; 71045; 80048; 83880; 84484; 85025; 85379; 93005; 99285